=== PATIENT | male | born 1940 | race Caucasian/White ===

== ENCOUNTER → 2020-05-09 | Outpatient (CLI) | payer MEDICARE, OTHER ==
[2020-05-09 13:11] LABS: INR 1.5 (0.8-1.4); PROTHROMBIN TIME PATIENT 18.6 SEC (12.2-14.7)
== END ==
LOC: LAB FS 12:39
DX: Z01.89 Encounter for other specified special examinations (principal); Z79.01 Long term (current) use of anticoagulants; Z95.2 Presence of prosthetic heart valve
CPT/HCPCS: 36415; 85610

== ENCOUNTER 2021-05-23 22:01 | Emergency (ER) | payer MEDICARE, OTHER ==
[~2021-05-23] VITALS: Ht 175 cm; Wt 81.6 kg
--- OUTSIDE RECORDS SUMMARY | 2021-05-23 22:05 | XMS REPORT | Encounter Summary ---
Author Author [facility] Organization [facility] Address Unknown Phone Unavailable Care Team Providers Care Counselor Aid Name Role Phone Lesia Rosenthal Unavailable Unavailable Jean Castellanos MD Unavailable Homer Cabezas MD Unavailable Jose Luis Roblero MD PCP Reason for Visit * Reason Comments Anticoagulation INR 2.3 Encounter Details Care Team Description Date Type Department Adrienne Cruz RN Anticoagulation (INR 2.3) 04/26/2021 Anticoagulation Cardiology: [facility] [address], [address] [place] [address] Social History Date Tobacco Use Types Packs/Day Years Used Never Smoker Smokeless Tobacco: Never Used Comments Alcohol Use Standard Drinks/Week 1 can of beer a day- summer only Yes 7 (1 standard drink = 0.6 o z pure alcohol) Alcohol Habits Answer Date Recorded How often do you have a drink containing alcohol? No t asked How many drinks containing alcohol do you have on No t asked a typical day when you are drinking? How often do you have six or more drinks on one Not asked occasion? Comment: 1 can of beer a - summer02/09/2018 only Sex Assigned at Date Recorded Not on file documented as of this encounter Progress Notes * Adrienne Cruz RN - 04/26/2021 11:00 AM CDT 04/26/2021 11:31 AM INR 2.3 - spoke with spouse mala and confirmed warfarin gentry n. Increased dose by 5% from last week's total dose. INR recheck in 1 week. CJohnst onRN documented in this encounter Plan of Treatment Not on filedocumented as of this encounter Procedures Comments Procedure Name Priority Date/Time Associated Diag nosis HOME INR Routine 04/26/2021 documented in this encounter Results * HOME INR (04/26/2021) INR Home 2.3 OTHER OUTSIDE LAB Specimen Narrative Performed At This result has an attachment that is n ot available. Performing Organization Address City/State/ZIP Code P maddie Number OTHER OUTSIDE LAB documented in this encounter Visit Diagnoses Diagnosis Anticoagulant long-term use - Primary Long-term (current) use of anticoagulan ts History of aortic valve replacement Heart valve replaced by other means documented in this encounter Additional Health Concerns Assessment Noted Time A fall risk assessment has been completed for the pat ient 03/13/2021 10:59 AM CDT documented as of this encounter
--- OUTSIDE RECORDS SUMMARY | 2021-05-23 22:05 | XMS REPORT | Encounter Summary ---
Author Author [facility] Organization [facility] Address Unknown Phone Unavailable Care Team Providers Care Accounting Associate Name Role Phone Lesia Rosenthal Unavailable Unavailable Jean Castellanos MD Unavailable Homer Cabezas MD Unavailable Jose Luis Roblero MD PCP Reason for Visit * Reason Comments Anticoagulation INR 2.3//return 04/23 Encounter Details Care Team Description Date Type Department Lori Lundy, EUGENIO Anticoagulation (INR 2.3//return 04/23) 04/19/2021 Anticoagulation Cardiology: [facility] [address], [address] [place] [address] Social History Date Tobacco Use [...] as of this encounter Progress Notes * Lori Lundy, RN - 04/19/2021 8:40 AM CDT 04/19/2021 8:43 AM INR 2.3 - I spoke with Shara - she states that they misunders tood instructions and Osman has only been taking 5mg of warfarin daily. I asked that he increase his dose today only and recheck INR Thursday. Shara read back instructions and confirmed understanding. Lori Lundy, RN documented in this encounter Plan of Treatment Not on filedocumented as of this encounter Procedures Comments Procedure Name Priority Date/Time Associated Diag nosis HOME INR Routine 04/19/2021 documented in this encounter Results * HOME INR (04/19/2021) INR Home 2.3 OTHER OUTSIDE LAB Specimen [...]
--- OUTSIDE RECORDS SUMMARY | 2021-05-23 22:05 | XMS REPORT | Encounter Summary ---
Author Author [facility] Organization [facility] Address Unknown Phone Unavailable Care Team Providers Care Fixed Wing Aircraft Flight Mechanic Name Role Phone Lesia Rosenthal Unavailable Unavailable Jean Castellanos MD Unavailable Homer Cabezas MD Unavailable Jose Luis Roblero MD PCP Reason for Visit * Reason Comments Anticoagulation INR 1.1 Encounter Details Care Team Description Date Type Department Kizzy Koenig RN Anticoagulation (INR 1.1) 03/29/2021 Anticoagulation Cardiology: [facility] [address], [address] [place] [address] Social History Date Tobacco Use [...] occasion? Comment: 1 can of beer a day- summer02/09/2018 only Sex Assigned at Date Recorded Not on file Date Recorded COVID-19 Exposure Response 03/13/2021 9:39 AM CDT In the last month, have you been in contact with No / Unsure someone who was confirmed or suspected to have Coronavirus / COVID-19? documented as of this encounter Progress Notes * Kizzy Koenig RN - 03/29/2021 9:41 AM CDT 03/29/2021 9:42 AM -INR 1.1- pt is s/p thyroid biopsy, taking lovenox and resumed his warfarin yesterday. I spoke with the spouse Shara, instructed to take 7.5 mg warfarin daily, continue the Lovenox BID and recheck INR on 04/01- Zay documented in this encounter Plan of Treatment Not on filedocumented as of this encounter Procedures Comments Procedure Name Priority Date/Time Associated Diag nosis HOME INR Routine 03/29/2021 documented in this encounter Results * HOME INR (03/29/2021) INR Home 1.1 [facility] Specimen Performing Organization Address City/State/ZIP Code P maddie Number [facility] [address] [place] [address] documented in this encounter Visit Diagnoses Not on filedocumented in this encounter Additional Health Concerns Assessment Noted Time A fall risk assessment has been completed for the pat ient 03/13/2021 10:59 AM CDT documented as of this encounter
--- OUTSIDE RECORDS SUMMARY | 2021-05-23 22:05 | XMS REPORT | Encounter Summary ---
Author Author [facility] Organization [facility] Address Unknown Phone Unavailable Care Team Providers Care Animal Nursery Worker Name Role Phone Lesia Rosenthal Unavailable Unavailable Jean Castellanos MD Unavailable Homer Cabezas MD Unavailable Jose Luis Roblero MD PCP Reason for Visit * Reason Comments Anticoagulation INR 3.4 Encounter Details Care Team Description Date Type Department Kizzy Koenig RN Anticoagulation (INR 3.4) 04/11/2021 Anticoagulation Cardiology: [facility] [address], [address] [place] [address] Social History Date Tobacco Use [...] Progress Notes * Kizzy Koenig RN - 04/11/2021 10:44 AM CDT 04/11/2021 11:08 AM -INR 3.4-I called the spouse Shara and reviewed the INR resul t, prior the thyroid biopsy he was taking 5 mg several days a week. Warfarin dos e decreased and he will recheck in 1 week. [facility] Shara will keep us updated if this is scheduled. She has 40 Lovenox sy ringes at home in case he needs to hold warfarin and bridge with Lovenox. [place] RN documented in this encounter Plan of Treatment Not on filedocumented as of this encounter Procedures Comments Procedure Name Priority Date/Time Associated Diag nosis HOME INR Routine 04/11/2021 documented in this encounter Results * HOME INR (04/11/2021) INR Home 3.4 OTHER OUTSIDE LAB Specimen Narrative Performed At This result has an attachment that is n ot available. Performing Organization Address City/State/ZIP Code P maddie Number OTHER OUTSIDE LAB documented in this encounter Visit Diagnoses Not on filedocumented in this encounter Additional Health Concerns Assessment Noted Time A fall risk assessment has been completed for the pat ient 03/13/2021 10:59 AM CDT documented as of this encounter
--- OUTSIDE RECORDS SUMMARY | 2021-05-23 22:05 | XMS REPORT | Encounter Summary ---
Author Author [facility] Organization [facility] Address Unknown Phone Unavailable Care Team Providers Care Public Health Administrator Name Role Phone Lesia Rosenthal Unavailable Unavailable Jean Castellanos MD Unavailable Homer Cabezas MD Unavailable Jose Luis Roblero MD PCP Reason for Visit * Reason Comments Anticoagulation INR 2.1 Encounter Details Care Team Description Date Type Department Kizzy Koenig RN Anticoagulation (INR 2.1) 04/03/2021 Anticoagulation Cardiology: [facility] [place] [place] [address] Social History Date Tobacco Use Types Packs/Day [...] Progress Notes * Kizzy Koenig RN - 04/03/2021 9:00 AM CDT 04/03/2021 1:15 PM -INR 2.1- INR reviewed with Dr. Tracy in clinic and the pt c an stop taking the Lovenox injections. I called the pt and spoke with the spouse Shara and reviewed the plan to stop taking the Lovenox and continue taking the 7.5 mg of warfarin daily. Shara will recheck the INR on 04/05 or 04/08/21. Debi Burnett documented in this encounter Plan of Treatment Not on filedocumented as of this encounter Procedures Comments Procedure Name Priority Date/Time Associated Diag nosis HOME INR Routine 04/03/2021 documented in this encounter Results * HOME INR (04/03/2021) INR Home 2.1 OTHER OUTSIDE LAB Specimen Narrative Performed At [...]
--- OUTSIDE RECORDS SUMMARY | 2021-05-23 22:05 | XMS REPORT | Encounter Summary ---
Author Author [facility] Organization [facility] Address Unknown Phone Unavailable Care Team Providers Care Weigh And Charge Worker Name Role Phone Lesia oRsenthal Unavailable Unavailable Jean Castellanos MD Unavailable Homer Cabezas MD Unavailable Jose Luis Roblero MD PCP Reason for Visit * Reason Comments Anticoagulation INR 1.8 Encounter Details Care Team Description Date Type Department Kizzy Koenig RN Anticoagulation (INR 1.8) 04/23/2021 Anticoagulation Cardiology: [facility] [address], [address] [place] [address] Social History Date Tobacco Use [...] Progress Notes * Kizzy Koenig RN - 04/23/2021 10:35 AM CDT 04/23/2021 10:45 AM -INR 1.8- spoke with spouse mala and verified the warfarin dosing he has been taking, warfarin dose increased and he will recheck the INR o n 04/26/21-Zay documented in this encounter Plan of Treatment Not on filedocumented as of this encounter Procedures Comments Procedure Name Priority Date/Time Associated Diag nosis HOME INR Routine 04/23/2021 documented in this encounter Results * HOME INR (04/23/2021) INR Home 1.8 OTHER OUTSIDE LAB Specimen Narrative Performed At [...]
--- OUTSIDE RECORDS SUMMARY | 2021-05-23 22:05 | XMS REPORT | Encounter Summary ---
Author Author [facility] Organization [facility] Address Unknown Phone Unavailable Care Team Providers Care Arboreal Scientist Name Role Phone Lesia Rosenthal Unavailable Unavailable Jean Castellanos MD Unavailable Homer Cabezas MD Unavailable Jose Luis Roblero MD PCP Reason for Visit * Reason Comments Anticoagulation INR 2.9// return Encounter Details Care Team Description Date Type Department Rosemarie Dockery RN Anticoagulation (INR 2.9// return) 03/25/2021 Anticoagulation Cardiology: [facility] [address], [address] [place] [address] Social History Date Tobacco Use [...] as of this encounter Progress Notes * Rosemarie Dockery RN - 03/25/2021 11:02 AM CDT 03/25/2021: INR 2.9 from 03/23. Patient already has instructions regarding hold fo r procedure this week. Will recheck INR 03/29. EUGENIO Salazar documented in this encounter Plan of Treatment Not on filedocumented as of this encounter Procedures Comments Procedure Name Priority Date/Time Associated Diag nosis HOME INR Routine 03/23/2021 documented in this encounter Results * HOME INR (03/23/2021) INR Home 2.9 OTHER OUTSIDE LAB Specimen Narrative Performed At [...]
--- OUTSIDE RECORDS SUMMARY | 2021-05-23 22:05 | XMS REPORT | Encounter Summary ---
Author Author [facility] Organization [facility] Address Unknown Phone Unavailable Care Team Providers Care Eyeglass Frames Inspector Name Role Phone Lesia Rosenthal Unavailable Unavailable Jean Castellanos MD Unavailable Homer Cabezas MD Unavailable Jose Luis Roblero MD PCP Reason for Visit * Reason Comments Medication Refill Encounter Details Care Team Description Date Type [place] [address] [place] [address] [phone] Medication Refill 04/03/2021 Refill Cardiology: [facility] [address] [place] [address], [address] [place] [address] Social History Date Tobacco Use [...] / COVID-19? documented as of this encounter Ordered Prescriptions Start Date End Date Prescription Sig Dispensed Refills 04/04/2021 warfarin (COUMADIN) 5 mg TAKE 1 & 1/2 135 tablet 1 tablet (ONE & ONE-HALF) TABLETS BY MOUTH ONCE DAILY AND DIRECTED BY PHYSICIAN documented in this encounter Plan of Treatment Not on filedocumented as of this encounter Visit Diagnoses Not on filedocumented in this encounter Discontinued Medications Start Date End Date Medication Sig Discontinue Reason 12/10/2020 04/04/2021 warfarin (COUMADIN) 5 mg TAKE 1 & 1/2 tablet (ONE & ONE-HALF) TABLETS BY MOUTH ONCE DAILY AND DIRECTED BY PHYSICIAN documented as of this encounter Additional Health Concerns Assessment Noted Time A fall risk assessment has been completed for the pat ient 03/13/2021 10:59 AM CDT documented as of this encounter
--- OUTSIDE RECORDS SUMMARY | 2021-05-23 22:05 | XMS REPORT | Encounter Summary ---
Author Author [facility] Organization [facility] Address Unknown Phone Unavailable Care Team Providers Care Plant Manager Name Role Phone Lesia Rosenthal Unavailable Unavailable Jean Castellanos MD Unavailable Homer Cabezas MD Unavailable Jose Luis Roblero MD PCP Reason for Visit * Reason Comments Anticoagulation INR 3.6 Encounter Details Care Team Description Date Type Department Kizzy Koenig RN Anticoagulation (INR 3.6) 05/17/2021 Anticoagulation Cardiology: [facility] [address], [address] [place] [address] Social History Date Tobacco Use [...] Progress Notes * Kizzy Koenig RN - 05/17/2021 12:17 PM CDT 05/17/2021 12:19 PM -INR 3.6- I called Shara and confirmed the warfarin dosing h imer has been taking. He will decrease the dose and recheck the INR in 1 week- [facility] oaRN documented in this encounter Plan of Treatment Not on filedocumented as of this encounter Procedures Comments Procedure Name Priority Date/Time Associated Diag nosis HOME INR Routine 05/17/2021 documented in this encounter Results * HOME INR (05/17/2021) INR Home 3.6 OTHER OUTSIDE LAB Specimen Narrative Performed At [...]
--- OUTSIDE RECORDS SUMMARY | 2021-05-23 22:05 | XMS REPORT | Clinical Summary ---
Author Author [facility] Address Unknown Phone Unavailable Care Team Providers Care Bull Ladle Tender Name Role Phone Lesia Rosenthal Unavailable Unavailable Jean Castellanos MD Unavailable Homer Cabezas MD Unavailable Jose Luis Roblero MD PCP Source Comments Some departments are not documenting in the electronic medical record. If you d o not see the information that you expected, contact Release of Information in [facility] [employer] Information Management department at [phone] for further assistan ce in locating additional records.[facility] Allergies No Known Active Allergies Medications End Date Status Medication Sig Dispensed Refills Start Date Active aspirin EC 81 mg tablet Take 81 mg by 0 mouth at bedtime daily. Active omeprazole DR(+) Take 20 mg by 0 (PRILOSEC) 20 mg capsule mouth as Needed. Active cholecalciferol (VITAMIN Take 400 0 D-3) 400 unit Tab Units by mouth daily. Active finasteride (PROSCAR) 5 Take 5 mg by 0 mg tablet mouth daily. Active fish oil /omega-3 fatty Take 3 0 acids (SEA-OMEGA) capsules by 340/1000 mg capsule mouth daily. Active sildenafil citrate Take by 0 (VIAGRA PO) mouth. Active rosuvastatin (CRESTOR) 20 Take one 90 tablet 0 02/02/202 mg tabletIndications: tablet by 0 hyperlipidemia mouth daily. Indications: excessive fat in the blood Active other medication CBD 0 Supplements Active cetirizine (ZYRTEC) 10 mg Take 10 mg by 0 05/0 tablet mouth daily. 1 Active fluticasone propionate Apply 1 spray 0 03/26/2 02 (FLONASE) 50 into nose as 1 mcg/actuation nasal directed spray, suspension daily as needed. Active losartan (COZAAR) 100 mg Take one 90 tablet 3 0 tablet tablet by 1 mouth daily. Active enoxaparin (LOVENOX) 80 Inject 0.8 mL 10 each 1 mg syringe under the 1 skin every 12 hours. As provider instructed you to take. Active warfarin (COUMADIN) 5 mg TAKE 1 & 08/11 135 tablet 1 tablet (ONE & 1 ONE-HALF) TABLETS BY MOUTH ONCE DAILY AND DIRECTED BY PHYSICIAN Active Problems Problem Noted Date Leg pain 11/21/2013 Rotator cuff disorder 09/13/2012 Preoperative cardiovascular examination 08/18/2012 Left shoulder pain 08/18/2012 Elevated liver enzymes 12/15/2011 Thyroid nodule 10/23/2011 Overview: Formatting of this note might be differ ent from the original. 10/17/11- CTA chest: 2.3 cm nodule in the right lobe of the thyroid. Consult Dr Castellanos- Ultrasound and image g uided biopsy. Thoracic aortic aneurysm 10/14/2011 History of colon cancer 12/11/2010 Overview: Formatting of this note might be differ ent from the original. Was treated by Dr. Dmitriy Santana in [facility]. Patient has had chemotherapy in the past. Essential hypertension 12/11/2010 History of aortic valve replacement: [address] Maurilio b ileaflet mechanical 12/09/2010 aortic valve Overview: Formatting of this note might be differ ent from the original. 10/09/03 [facility], Aor tic valve replacement with 23-MM St. Maurilio mechanical valve, single vessel co ronary artery bypass grafting with aortic reversed saphenous vein graft to the distal right coronary artery system. Dyslipidemia 12/09/2010 GERD (gastroesophageal reflux disease) 12/09/2010 CAD (coronary artery disease) 12/09/2010 Overview: Formatting of this note might be differ ent from the original. 09/01/2003 cardiac catheterization, [facility], angioplasty and stent procedure was terminated erin use they were unable to maintain engagement enough to actually pass the wire down the right coronary artery. 03/12/2006 cardiac catheterization, [facility], angioplasty and stenting of the left anterior desce nding. 3.5 x 23 mm Cypher drug eluting stent. History of CABG 12/09/2010 Overview: Formatting of this note might be differ ent from the original. 2003 Javier Hall MD [facility] [address], [place] [address] Anticoagulant long-term use 12/09/2010 Overview: Formatting of this note might be differ ent from the original. Had previously been taking brand name c oumadin but more recently generic warfarin. Encounters Care Team Description Date Type Specialty Kizzy Koenig RN Anticoagulation (INR 3.6) 05/17/2021 Anticoagulation Cardiology Kizzy Koenig RN Anticoagulation (INR 3.6) 05/10/2021 Anticoagulation Cardiology Kizzy Koenig RN Anticoagulation (INR 3.6) 05/03/2021 Anticoagulation Cardiology Kizzy Koenig RN Test 04/29/2021 Telephone Cardiology Adrienne Cruz RN Anticoagulation (INR 2.3) 04/26/2021 Anticoagulation Cardiology Kizzy Koenig RN Anticoagulation (INR 1.8) 04/23/2021 Anticoagulation Cardiology Lori Lundy RN Anticoagulation (INR 2.3//return 04/23) 04/19/2021 Anticoagulation Cardiology Kizzy Koenig RN Anticoagulation (INR 3.4) 04/11/2021 Anticoagulation Cardiology Kizzy Koenig RN Anticoagulation (INR 2.3) 04/05/2021 Anticoagulation Cardiology Giancarlo Tracy MD Medication Refill 04/03/2021 Refill Cardiology Kizzy Koenig RN Anticoagulation (INR 2.1) 04/03/2021 Anticoagulation Cardiology Kizzy Koenig RN Anticoagulation (INR 1.5) 04/01/2021 Anticoagulation Cardiology Kizzy Koenig RN Anticoagulation (INR 1.1) 03/29/2021 Anticoagulation Cardiology Kizzy Koenig RN Medication Question About Anticoagulatio n Therapy (Lovenox bridge) 03/27/2021 Telephone Cardiology Rosemarie Dockery RN Anticoagulation (INR 2.9// return) 03/25/2021 Anticoagulation Cardiology Joan Cowan RN Medication Management ([facility] picked edge sewing machine [facility]) 03/23/2021 Telephone Cardiology Laury Polanco RN Medication Question About Anticoagulatio n Therapy (8/18/21 Thyroid nodule biopsy scheduled) 03/22/2021 Telephone Cardiology Laury Polanco RN Anticoagulation (INR 4.2) 03/22/2021 Anticoagulation Cardiology Kenyetta [place] RN Dyslipidemia (Primary Dx) 03/21/2021 Orders Only Cardiology Kizzy Koenig RN Results (CT chest) 03/18/2021 Telephone Cardiology Haydee Piper PA-C CAD (3 month follow up ); Hypertension; Dyslipidemia 03/13/2021 Office Visit Cardiology Giancarlo Tracy MD 03/13/2021 Hospital Radiology Encounter 03/13/2021 Travel Kenyetta [place] RN Records Request (recent labs from PCP) 03/12/2021 Documentation Cardiology Kizzy Koenig RN Patient Questions 03/11/2021 Telephone Cardiology Sol Magallon RN Appointment Question (CT chest & TIGRE appt ) 03/11/2021 Telephone Cardiology Kizzy Koenig RN Anticoagulation (INR 2.6) 02/27/2021 Anticoagulation Cardiology from Last 3 Months Surgical History Surgery Date Site/Laterality Comments COLECTOMY 2000 HERNIA REPAIR x 2 HX ROTATOR CUFF REPAIR HEART VALVE SURGERY 2003 Aortic Valve repla cement, Bypass, 2006- Stent SHOULDER SURGERY 08/31/2012 left shoulder Medical History Medical History Date Comments Aortic valve replaced 12/09/2010 Hyperlipidemia 12/09/2010 GERD (gastroesophageal reflux disease) 12/09/2010 CAD (coronary artery disease) 12/09/2010 Coronary bypass 12/09/2010 Anticoagulant long-term use 12/09/2010 History of colon cancer 12/11/2010 Hypertension 12/11/2010 Unspecified deficiency anemia Complication of anesthesia Arthritis Cancer (HCC) Hearing loss Seasonal allergic reaction Fracture kneecap, finger Family History Medical History Relation Name Comments Cancer Brother Cancer Mother colon cancer Colon Polyps Mother High Cholesterol Mother Hypertension Mother Stroke Mother Cancer Sister Stroke Sister Colon Polyps Sister Cancer-Colon Sister Brain Tumor Sister Relation Name Status Comments Brother Alive Brother Alive Brother after liver tx Father emphysema Maternal Aunt aortic heart valve Mother stroke (Age 84) Sister Sister Alive Sister Sister Sister Social History Date Tobacco Use Types Packs/Day Years Used Never Smoker Smokeless Tobacco: Never Used Tobacco Cessation: Counseling Given: Yes Comments Alcohol Use Standard Drinks/Week 1 can [...] Comment: 1 can of beer a day- summer 02/09/2018 only Sex Assigned at Date Recorded Not on file Last Filed Vital Signs Reading Time Taken Comments Vital Sign 140/82 03/13/2021 11:24 AM CDT Blood Pressure 68 03/13/2021 10:59 AM CDT Pulse 36.7 C (98 F) 09/17/2012 8:42 AM DIRECTOR DERMATOLOGY Temperature 16 04/19/2019 11:03 AM CDT Respiratory Rate 97% 06/22/2018 12:56 PM DIRECTOR DERMATOLOGY Oxygen Saturation - - Inhaled Oxygen Concentration 84.3 kg (185 lb 12.8 oz) 03/13/2021 10:59 AM CDT Weight 175.3 cm (5' 9") 03/13/2021 10:59 AM CDT Height 27.44 03/13/2021 10:59 AM CDT Body Mass Index Plan of Treatment Health Maintenance Due Date Last Done Comments MEDICARE ANNUAL WELLNESS 1940 VISIT DTAP/TDAP VACCINES (1 - 01/06/1958 Tdap) PHYSICAL (COMPREHENSIVE) 01/06/1958 EXAM PNEUMONIA (PPSV23) 01/06/2005 VACCINE (1 of 1 - PPSV23) INFLUENZA VACCINE 03/10/2021 05/13/2012 SHINGLES RECOMBINANT 03/19/2021 01/22/2021 VACCINE (2 of 2) Procedures Comments Procedure Name Priority Date/Time Associated Diag nosis HOME INR Routine 05/17/2021 HOME INR Routine 05/10/2021 HOME INR Routine 05/03/2021 HOME INR Routine 04/26/2021 HOME INR Routine 04/23/2021 HOME INR Routine 04/19/2021 HOME INR Routine 04/11/2021 HOME INR Routine 04/05/2021 HOME INR Routine 04/03/2021 HOME INR Routine 04/01/2021 HOME INR Routine 03/29/2021 HOME INR Routine 03/23/2021 HOME INR Routine 03/22/2021 CTA CHEST WO/W Routine 03/13/2021 Thoracic aortic aneurysm CONTRAST+POST P 10:05 AM CDT without rupture (HC C) HC CREATININE, POC 03/13/2021 9:54 AM CDT HOME INR Routine 02/27/2021 from Last 3 Months Results * HOME INR (05/17/2021) Only the most recent of 14 results within the time period is included. INR Home 3.6 OTHER OUTSIDE LAB Specimen Narrative Performed At This result has an attachment that is n ot available. Performing Organization Address City/State/ZIP Code P maddie Number OTHER OUTSIDE LAB * CTA CHEST WO/W CONTRAST+POST P (03/13/2021 10:05 AM CDT) Specimen Impressions Performed At 1. Previous CABG and aortic valve replacement, with s table ascending aortic [facility] aneurysm, measuring up to 5.1 cm. 2. Development of few clustered nodules within the left upper lobe, measuring up to 0.7 cm, which are nonspecific though likely infectious. Follow-up CT chest in 3-6 months is recommended to confirm re solution. #FOLLOW Finalized by WILLY KASPER M.D. on 2020 10:39 AM. Dictated by WILLY KASPER M.D. on 03/13/2021 10:13 AM. Narrative Performed At CTA Chest [facility] Clinical Indication: Thoracic aortic aneurysm without rupture Technique: Multiple contiguous axial CT images were obtained through the chest following the administration of IV cont rast.Noncontrast imaging was also obtained. Post processing coronal and s agittal reconstruction images were made from the axial images. Image post-pro cessing was obtained. Sagittal and coronal MIP reconstruction was performe d IV contrast: Omnipaque Comparison: 03/15/2020 Findings: Lower neck: Similar enlarged, multinodu lar thyroid. Axilla, Mediastinum and Myranda: No axilla ry, mediastinal, or hilar adenopathy. Heart and Great Vessels: Heart size wit hin normal limits without significant pericardial effusion. Coronary artery c alcification and stent. Previous median sternotomy, CABG, and aortic valve repl acement. Stable dilatation of the ascending aorta, measuring up to 5.1 cm in diameter. No thoracic aortic dissection or intramural hematoma. Airway, Lungs and Pleura: Development o f few small nodules within the anterior left upper lobe, with a dominant nodule measuring up to 0.7 cm on image 95 series 4. Resolution of previously new tiny clustered nodules within the anterior right upper lobe. Few addition al tiny pulmonary nodules are unchanged (for example in the right lower lobe on image 129 series 4). No pleural effusion. Upper Abdomen: Cholelithiasis. Probable right renal cyst. Chest Wall and Osseous Structures: Smal l fat-containing anterior abdominal wall hernia. Previous left shoulder arthropl asty. Thoracic spondylosis. Procedure Note Interface, Radiant Results - 03/13/2021 10:42 AM CDT CTA Chest Clinical Indication: Thoracic aortic aneurysm without rupture Technique: Multiple contiguous axial CT images were obtained through the chest following the administration of IV contrast.Noncontrast imaging was also obtained. Post processing coronal and sagittal reconstruction images were made from the axial images. Image post-processing was obtained. Sagittal and coronal MIP reconstruction was performed IV contrast: Omnipaque Comparison: 03/15/2020 Findings: Lower neck: Similar enlarged, multinodular thyroid. Axilla, Mediastinum and Myranda: No axillary, mediastinal, or hilar adenopathy. Heart and Great Vessels: Heart size within normal limits without significant pericardial effusion. Coronary artery calcification and stent. Previous median sternotomy, CABG, and aortic valve replacement. Stable dilatation of the ascending aorta, measuring up to 5.1 cm in diameter. No thoracic aortic dissection or intramural hematoma. Airway, Lungs and Pleura: Development of few small nodules within the anterior left upper lobe, with a dominant nodule measuring up to 0.7 cm on image 95 series 4. Resolution of previously new tiny clustered nodules within the anterior right upper lobe. Few additional tiny pulmonary nodules are unchanged (for example in the right lower lobe on image 129 series 4). No pleural effusion. Upper Abdomen: Cholelithiasis. Probable right renal cyst. Chest Wall and Osseous Structures: Small fat-containing anterior abdominal wall hernia. Previous left shoulder arthroplasty. Thoracic spondylosis. IMPRESSION 1. Previous CABG and aortic valve replac ement, with stable ascending aortic aneurysm, measuring up to 5.1 cm. 2. Development of few clustered nodules within the left upper lobe, measuring up to 0.7 cm, which are nonspecific though likely infectious. Follow-up CT chest in 3-6 months is recommended to confirm resolution. #FOLLOW Finalized by WILLY KASPER M.D. on 03/13/2021 10:39 AM. Dictated by WILLY KASPER M.D. on 03/13/2021 10:13 AM. Performing Organization Address City/State/ZIP Code P maddie Number [facility] * POC CREATININE, RAD (03/13/2021 9:54 AM CDT) Creatinine, POC 1.1 0.4 - 1.24 MG/DL [facility] Specimen Performing Organization Address City/State/ZIP Code P maddie Number [facility] [address] [place] [address] from Last 3 Months Insurance Type Payer Benefit Subscriber ID Effective Phone Address Plan / Dates Group Medicare MEDICARE MEDICARE [id number] 2004-P PART A AND resent B [phone] Advance Directives Patient Operations Specialist Explanation Type Date Recorded Advance Directive/DPOA Advance Directives 08/18/2012 2:31 PM and Living Will Advance Directives 07/27/2012 12:26 PM and Living Will Advance Directives 10/07/2011 12:00 AM and Living Will Advance Directives 12/09/2010 12:00 AM and Living Will Advance Directives 12/06/2010 12:00 AM and Living Will Date Inactivated Comments Code Status Date Activated 09/17/2012 3:23 PM Full Code 09/15/2012 6:07 PM Provider has discussed Code Status Yes w/Patient or Family? 09/02/2012 12:57 PM Full Code 08/31/2012 2:34 PM Provider has discussed Code Status Yes w/Patient or Family?
--- OUTSIDE RECORDS SUMMARY | 2021-05-23 22:05 | XMS REPORT | Encounter Summary ---
Author Author [facility] Organization [facility] Address Unknown Phone Unavailable Care Team Providers Care Textile Worker Name Role Phone Lesia Rosenthal Unavailable Unavailable Jean Castellanos MD Unavailable Homer Cabezas MD Unavailable Jose Luis Roblero MD PCP Reason for Visit * Reason Onset Date Comments Test 04/29/2021 Encounter Details Care Team Description Date Type Department Kizzy Koenig RN Test 04/29/2021 Telephone Cardiology: [facility] [address] [place] [address] Social History Date Tobacco Use [...] on file documented as of this encounter Miscellaneous Notes * Telephone Encounter - Kizzy Koenig RN - 04/29/2021 11:12 AM CDT I called the pt and spoke to the spouse Shara and reviewed that her beverly l be due for a follow up CTA Chest in June and I can coordinate scheduling t he same day as the 06/19/[address] Tracy. I called [facility] schedul ing and scheduled the CTA Chest on 06/19/21 @ 9:15 at the location. I reviewe d the appt info with Shara and she verbalized understanding. * Telephone Encounter - Kizzy Koenig RN - 04/29/2021 11:10 AM CDT ----- Message from Kizzy Koenig RN sent at 03/18/2021 2:10 PM CDT ----- Regarding: coordinate f/u CT with OV in documented in this encounter Plan of Treatment Not on filedocumented as of this encounter Visit Diagnoses Not on filedocumented in this encounter Additional Health Concerns Assessment Noted Time A fall risk assessment has been completed for the pat ient 03/13/2021 10:59 AM CDT documented as of this encounter
--- OUTSIDE RECORDS SUMMARY | 2021-05-23 22:05 | XMS REPORT | Encounter Summary ---
Author Author [facility] Organization [facility] Address Unknown Phone Unavailable Care Team Providers Care Kier Drier Name Role Phone Lesia Rosenthal Unavailable Unavailable Jean Castellanos MD Unavailable Homer Cabezas MD Unavailable Jose Luis Roblero MD PCP Reason for Visit * Reason Onset Date Comments Medication Question About 03/27/2021 Lovenox brid ge Anticoagulation Therapy Encounter Details Care Team Description Date Type Department Kizzy Koenig RN Medication Question About Anticoagulatio n Therapy (Lovenox bridge) 03/27/2021 Telephone Cardiology: [facility] [address] [place] [address], [address] [place] [address] Social History Date Tobacco Use [...] / COVID-19? documented as of this encounter Miscellaneous Notes * Telephone Encounter - Kizzy Koenig RN - 03/29/2021 4:32 PM CDT 03/29/2021 4:32 PM - I spoke with the spouse and reviewed that they should receiv e the Lovenox syringes tomorrow. We reviewed to take 7.5 mg warfarin daily. love nox twice daily and INR on Thursday. * Telephone Encounter - Kizzy Koenig RN - 03/29/2021 12:40 PM CDT 03/29/2021 12:40 PM - Message received on the nurse line from Elizabeth BECKER with the [facility]. [facility]. She attempt ed calling the pt but did not reach them. I tried calling the spouse Shara and the voicemail was full. * Telephone Encounter - Kizzy Koenig RN - 03/29/2021 10:00 AM CDT 03/29/2021 10:01 AM I called Elizabeth BECKER with the [facility] clinic to follow up. She states she did rec eive the Lovnoex prescription and documentation and is awaiting Dr. Malloy to e nter the Lovenox prescription in the [place] system. I reviewed that the pts INR toda y is 1.1 and he will need to continue taking the Loveno twice daily thru the wee kend until we get his INR back in range. I reviewed that the pt [place] [address] from the [facility]. I reviewed that he has one lovenox syringe remaining for this ruth ann bridget and he will need lovenox for the weekend and does not want to drive back to the [facility]. Elizabeth states that once Dr. De La Garza enters the order she will follow up with the pharmacy and arrange overnight or area mechanic service to have the lovenox delivered to the pts home. She will f/u with the pt once this has been arranged. I called the pts spouse Shara and reviewed the plan, refer to the anticoagulat ion flowsheet. * Telephone Encounter - Kizzy Koenig RN - 03/27/2021 4:19 PM CDT Pts Shara called. Her had the thyroid biopsy today and is doing we ll. The procedure physician gave them approval to resume the lovenox bridge nicolle ght. He will resume the warfarin tomorrow and check an INR Thursday. Shara states they will be out of Lovenox syringes on Thursday. I reviewed that I will follow up with the [facility] clinic regarding the Lovenox refill. I had faxed the lovenox presc ription and telephone notes yesterday. I attempted calling Elizabeth Henderson RN with [facility] [place] ext [phone]. I left a detailed message and aske d for a return call. documented in this encounter Plan of Treatment Not on filedocumented as of this encounter Visit Diagnoses Not on filedocumented in this encounter Additional Health Concerns Assessment Noted Time A fall risk assessment has been completed for the pat ient 03/13/2021 10:59 AM CDT documented as of this encounter
--- OUTSIDE RECORDS SUMMARY | 2021-05-23 22:05 | XMS REPORT | Encounter Summary ---
Author Author [facility] Organization [facility] Address Unknown Phone Unavailable Care Team Providers Care Tail Dogger Name Role Phone Lesia Rosenthal Unavailable Unavailable Jean Castellanos MD Unavailable Homer Cabezas MD Unavailable Jose Luis Roblero MD PCP Reason for Visit * Reason Comments Anticoagulation INR 1.5 Encounter Details Care Team Description Date Type Department Kizzy Koenig RN Anticoagulation (INR 1.5) 04/01/2021 Anticoagulation Cardiology: [facility] [address], [address] [place] [address] Social History Date Tobacco Use [...] Progress Notes * Kizzy Koenig RN - 04/01/2021 10:26 AM CDT 04/01/2021 11:10 AM -INR 1.5- spoke to the spouse, warfarin dose increased, he wi ll continue the lovenox BID and recheck the INR on 04/03/21. He is not having ble eding at the biopsy site. Zay documented in this encounter Plan of Treatment Not on filedocumented as of this encounter Procedures Comments Procedure Name Priority Date/Time Associated Diag nosis HOME INR Routine 04/01/2021 documented in this encounter Results * HOME INR (04/01/2021) INR Home 1.5 OTHER OUTSIDE LAB Specimen Performing Organization Address City/State/ZIP Code P maddie Number OTHER OUTSIDE LAB documented in this encounter Visit Diagnoses Not on filedocumented in this encounter Additional Health Concerns Assessment Noted Time A fall risk assessment has been completed for the pat ient 03/13/2021 10:59 AM CDT documented as of this encounter
--- OUTSIDE RECORDS SUMMARY | 2021-05-23 22:05 | XMS REPORT | Encounter Summary ---
Author Author [facility] Organization [facility] Address Unknown Phone Unavailable Care Team Providers Care Developer Relations Manager Name Role Phone Lesia Rosenthal Unavailable Unavailable Jean Castellanos MD Unavailable Homer Cabezas MD Unavailable Jose Luis Roblero MD PCP Reason for Visit * Reason Comments Anticoagulation INR 2.3 Encounter Details Care Team Description Date Type Department Kizzy Koenig RN Anticoagulation (INR 2.3) 04/05/2021 Anticoagulation Cardiology: [facility] [address], [address] [place] [address] Social History Date Tobacco Use [...] Progress Notes * Kizzy Koenig RN - 04/05/2021 10:30 AM CDT 04/05/2021 10:32 AM -INR 2.3- I called the spouse Shara and reviewed to continue to have her take 7.5 mg daily and recheck the INR on 04/08/31. Zay documented in this encounter Plan of Treatment Not on filedocumented as of this encounter Procedures Comments Procedure Name Priority Date/Time Associated Diag nosis HOME INR Routine 04/05/2021 documented in this encounter Results * HOME INR (04/05/2021) INR Home 2.3 OTHER OUTSIDE LAB Specimen Performing Organization Address City/State/ZIP Code P maddie Number OTHER OUTSIDE LAB documented in this encounter Visit Diagnoses Not on filedocumented in this encounter Additional Health Concerns Assessment Noted Time A fall risk assessment has been completed for the pat ient 03/13/2021 10:59 AM CDT documented as of this encounter
--- OUTSIDE RECORDS SUMMARY | 2021-05-23 22:05 | XMS REPORT | Encounter Summary ---
Author Author [facility] Organization [facility] Address Unknown Phone Unavailable Care Team Providers Care Harmonic Analyst Name Role Phone Lesia Rosenthal Unavailable Unavailable Jean Castellanos MD Unavailable Homer Cabezas MD Unavailable Jose Luis Roblero MD PCP Reason for Visit * Reason Comments Anticoagulation INR 3.6 Encounter Details Care Team Description Date Type Department Kizzy Koenig RN Anticoagulation (INR 3.6) 05/03/2021 Anticoagulation Cardiology: [facility] [address] [place], [address] [place] [address] Social History Date Tobacco Use [...] Progress Notes * Kizzy Koenig RN - 05/03/2021 4:00 PM CDT 05/03/2021 4:04 PM -INR 3.6- I called the spouse Shara, pt is not having bleedin g issues. Verified warfarin dosing, dose decreased and he will recheck the INR i n 1 week-Zay documented in this encounter Plan of Treatment Not on filedocumented as of this encounter Procedures Comments Procedure Name Priority Date/Time Associated Diag nosis HOME INR Routine 05/03/2021 documented in this encounter Results * HOME INR (05/03/2021) INR Home 3.6 OTHER OUTSIDE LAB Specimen [...]
--- NOTE | 2021-05-23 22:24 | ED Lower Extremity ---
General Stated Complaint: RT LEG PAIN Source: patient, spouse History of Present Illness Date Seen by Provider: May 23, 2021 Time Seen by Provider: 22:06 Initial Comments 81 yo male presenting with complaint of pain to right lateral knee. He was crouched down for extended period of time and was digging while working on a double end sewer. He denied any direct trauma or injury to his knee or leg. He was having a little pain but then went and played 3-4 games of Pickle Ball. He had increasing pain as he did this. He drove himself home and walked in to the house around 1900. He iced the area of pain and rested. after about 2 hours of doing this he had increased pain when he tried to get up and was unable to bear weight due to pain. He has an artificial valve and takes Warfarin for that. He was worried he has a blood clot so he came to the ED. Last week when PT/INR checked it was 3.6 so they decreased his Warfarin dose. He is due to check his PT/INR tomorrow and he checks it at home. Onset: this afternoon Severity: severe (when he tries to bear weight otherwise he state it is not really bothering him) Pain/Injury Location: right knee (lateral aspect) Method of Injury: other (crouching and working on digging a hole for clearing a double end sewer. Then played several games of Pickle Ball.) Modifying Factors: Improves With Other (standing/bearing weight causes pain, palpation causes pain) Allergies and Home Medications Allergies Coded Allergies: No Known Drug Allergies (Unverified , 05/23/21) Patient Home Medication List Home Medication List Reviewed: Yes Review of Systems Constitutional: no symptoms reported EENTM: no symptoms reported Respiratory: no symptoms reported Cardiovascular: no symptoms reported Gastrointestinal: no symptoms reported Genitourinary: no symptoms reported Musculoskeletal: see HPI Skin: No change in color Psychiatric/Neurological: Denies Numbness, Denies Paresthesia Past Orglscy-Wrtxbv-Efyyac Hx Past Medical History Surgeries: Yes Orthopedic, Valve Replacement Respiratory: No Cardiac: Yes High Cholesterol, Hypertension, Valvular Heart Disease Neurological: No Genitourinary: Yes Benign Prostatic Hyperpl Gastrointestinal: No Musculoskeletal: No Endocrine: No HEENT: No Cancer: Yes Colon Psychosocial: No Physical Exam Vital Signs Vital Signs - First Documented 05/23/21 22:08 Temp 36.9 Pulse 67 Resp 20 B/P (MAP) 143/103 (116) Pulse Ox 97 O2 Delivery Room Air Capillary Refill : Height, Weight, BMI Height: '" Weight: lbs. oz. kg; BMI Method: General Appearance: WD/WN, no apparent distress Cardiovascular: normal peripheral pulses Knees: right knee pain, right knee soft tissue tenderness, right knee other (pain with palpation of lateral collateral ligament and down side of knee/leg. No erythema/ecchymosis. ) Neurologic/Tendon: normal sensation, normal motor functions, normal tendon functions Neurologic/Psychiatric: no motor/sensory deficits, alert, oriented x 3 Skin: normal color, warm/dry; No ecchymosis Progress/Results/Core Measures Results/Orders Lab Results Laboratory Tests Test 05/23/21 22:20 Range/Units Prothrombin Time 24.6 H 12.2-14.7 SEC INR Comment 2.2 H 0.8-1.4 Activated Partial Thromboplast Time 40 H 24-35 SEC D-Dimer 0.26 0.00-0.49 UG/ML My Orders Orders - SIMONE HENNING MD Protime With Inr (05/23/21 22:16) Partial Thromboplastin Time (05/23/21 22:16) Fibrin Degradation Products (05/23/21 22:16) Knee 3 View Right (05/23/21 22:16) Knee Immobilizer (05/23/21 23:03) Crutches (05/23/21 23:03) Vital Signs/I&O 05/23/21 22:08 Temp 36.9 Pulse 67 Resp 20 B/P (MAP) 143/103 (116) Pulse Ox 97 O2 Delivery Room Air Progress Progress Note #1: Progress Note Pt voiced that he was worried he had a blood clot since he was having severe pain this evening. He took Naproxen at home and iced the area but was still having severe pain when he tries to bear weight. Advised that we could do screening test for blood clot and see what his INR is tonight. Xray to check for acute bony abnormality. Pt refused pain medicine while waiting on imaging as he stated it was not really bothering him just resting in the bed, it was when he goes to bear weight that it hurts. Progress Note #2: Progress Note no acute fracture or bony abnormality on xrays. Degenerative changes but no significant joint effusion Progress Note #3: Time: 23:03 Progress Note INR is 2.2. D dimer is not elevated to indicate a blood clot. Will treat symptomatically with crutches and knee immobilizer. Can order outpatient ultrasound for tomorrow but this is more consistent with ligament and musculoskeletal pain/injury than DVT. May need MRI or additional imaging if not improving with immobilization and rest. Crutches for WBAT Diagnostic Imaging Diagonstic Imaging: Xray Plain Films/CT/US/NM/MRI: knee Comments NAME: ZARI MOYA [facility] REC#: [id number] PT STATUS: REG ER : 1940 PHYSICIAN: SIMONE HENNING MD ADMIT DATE: 05/23/21/ER FS Signed Date of Exam:05/23/21 KNEE 3 VIEW RIGHT Indication: Right knee pain AP, oblique and lateral views of the right knee are obtained. There is mild diffuse narrowing of knee joint compartments. This is most pronounced in the medial aspect with mild tricompartmental marginal spurring. No acute fractures identified. No significant joint effusion is identified. IMPRESSION: Mild diffuse osteoarthritis without acute osseous abnormality detected. Scratch it Dictated by: Dictated on workstation # [id number] Dict: 05/23/212232 Trans: 05/23/212233 [id number] Interpreted by: KATIE MOORE MD Electronically signed by: KATIE MOORE MD 05/23/212233 Reviewed: Reviewed by Me Departure Impression Primary Impression: Lateral joint line tenderness of right knee Additional Impression: Pain in lateral portion of right knee Disposition: 01 HOME, SELF-CARE Condition: Stable Departure-Patient Inst. Decision time for Depature: 23:17 Referrals: CATIE ROBLERO MD (PCP/Family) Primary Care Physician Patient Instructions: How to Use Crutches, Knee Brace ED, Knee Pain ED Add. Discharge Instructions: Wear knee immobilizer brace to let your knee rest and help relieve stress on knee when walking. Crutches for weight bearing as tolerated. Your INR was 2.2 tonight for us in the ED. Check with your provider about how to adjust your dosing on Warfarin. If continued problems/pain then see Dr. Roblero or Nurse Practitioner Justin Bone for Orthopedics and may need an MRI or other imaging of the knee. If you decide to have ultrasound done tomorrow you could call [phone] between 7 and 730 am. They will help arrange your ultrasound. SMIONE HENNING MD May 23, 2021 22:24
--- NOTE | 2021-05-23 22:36 | Diagnostic Imaging Report ---
Indication: Right knee pain AP, oblique and lateral views of the right knee are obtained. There is mild diffuse narrowing of knee joint compartments. This is most pronounced in the medial aspect with mild tricompartmental marginal spurring. No acute fractures identified. No significant joint effusion is identified. IMPRESSION: Mild diffuse osteoarthritis without acute osseous abnormality detected. Scratch it Dictated by: Dictated on workstation # [id number]
[2021-05-23 22:51] LABS: PROTHROMBIN TIME PATIENT 24.6 SEC (12.2-14.7)
[2021-05-23 22:52] LABS: FIBRIN DEGRADATION PRODUCTS 0.26 UG/ML (0.00-0.49); INR 2.2 (0.8-1.4)
[2021-05-23 23:30] VITALS: BP 143/103
== END 2021-05-23 23:30 | disposition home or self-care (01) ==
LOC: EDUNIT# 22:01 → ER FS 22:02
DX: M25.561 Pain in right knee (principal); I10 Essential (primary) hypertension; Z79.01 Long term (current) use of anticoagulants
CPT/HCPCS: 36415; 73562; 85379; 85610; 85730

== ENCOUNTER 2022-11-06 08:44 | Emergency (ER) | payer MEDICARE, OTHER ==
[~2022-11-06] VITALS: Ht 175 cm; Wt 77.0 kg
[2022-11-06] MEDS ORDERED: OXYMETAZOLINE (AFRIN) 0.05% NA 30 ML BTL STA (08:50)
[2022-11-06] MEDS ORDERED: OXYMETAZOLINE (AFRIN) 0.05% NA 30 ML BTL ONE (08:51)
--- NOTE | 2022-11-06 08:56 | ED EENT ---
History of Present Illness General Chief Complaint: Nasal Problems Stated Complaint: EPISTAXIS Source: patient Exam Limitations: no limitations History of Present Illness Date Seen by Provider: Nov 06, 2022 Time Seen by Provider: 08:46 Initial Comments 82yoM with PMH of valve replacement on Warfarin coming in due to a nosebleed. Started bleeding yesterday, was relatively rapid, stopped on its own. Started again at 6 AM this morning, has been less rapid than yesterday. He has not missed any doses of his warfarin. His INR is typically within range therapeutically. His states he does blow his nose a lot in the morning and messes with his nose quite a bit, so there is an aspect that this could be traumatic in nature. Denies any falls or hitting his face at all. Is otherwise denying any other acute complaints including chest pain, shortness of breath, abdominal pain, nausea, vomiting, diarrhea, fever, chills, weakness, numbness, or any other concerns. Allergies and Home Medications Allergies Coded Allergies: No Known Drug Allergies (Unverified , 05/23/21) Patient Home Medication List Home Medication List Reviewed: Yes Cephalexin (Cephalexin) 500 Mg Tablet, 500 MG PO QID Prescribed by: MASOUD WESTBROOK on 11/06/22 0944 Review of Systems Review of Systems Constitutional: No fever Eyes: No Symptoms Reported Ears: No Symptoms Reported Nose: see HPI Mouth: no symptoms reported Throat: no symptoms reported Respiratory: no symptoms reported Cardiovascular: no symptoms reported Gastrointestinal: no symptoms reported Musculoskeletal: no symptoms reported Past Gzplftb-Qpbjrm-Cwrmuv Hx Patient Social History Substance use?: No Immunizations Up To Date First/Initial COVID19 Vaccinat: SEP 2020 Second COVID19 Vaccination [place]: OCTOBER 2020 Past Medical History Surgeries: Yes Orthopedic, Valve Replacement Respiratory: No Cardiac: Yes High Cholesterol, Hypertension, Valvular Heart Disease Neurological: No Genitourinary: Yes Benign Prostatic Hyperpl Gastrointestinal: No Musculoskeletal: No Endocrine: No HEENT: No Cancer: Yes Colon Psychosocial: No Physical Exam Vital Signs Vital Signs - First Documented 11/06/22 09:00 Temp 36.0 Pulse 71 Resp 16 B/P (MAP) 157/84 (108) Pulse Ox 94 O2 Delivery Room Air Height, Weight, BMI Height: '" Weight: lbs. oz. kg; 26.00 BMI Method: General Appearance: WD/WN, no apparent distress Eyes: bilateral eye normal inspection Ears: bilateral ear auricle normal Nose: active bleeding (From left nare, appears anterior) Mouth/Throat: normal mouth inspection, pharynx normal Neck: non-tender, full range of motion, supple, normal inspection Cardiovascular: regular rate, rhythm, no edema Respiratory: chest non-tender, lungs clear, normal breath sounds, no respiratory distress, no accessory muscle use Gastrointestinal: normal bowel sounds, non tender, soft; No distended, No guarding Neurologic/Psychiatric: no motor/sensory deficits, alert, normal mood/affect Skin: normal color, warm/dry Procedures/Interventions Anterior nasal packing with rapid Rhino 5-1/2 cm used after placing it in sterile water first. Patient tolerated procedure well. There is still some minimal bleeding afterwards Progress/Results/Core Measures Results/Orders Lab Results Laboratory Tests Test 11/06/22 08:55 Range/Units White Blood Count 8.2 4.3-11.0 10^3/uL Red Blood Count 4.38 4.30-5.52 10^6/uL Hemoglobin 13.6 13.3-17.7 g/dL Hematocrit 42 40-54 % Mean Corpuscular Volume 95 80-99 fL Mean Corpuscular Hemoglobin 31 25-34 pg Mean Corpuscular Hemoglobin Concent 33 32-36 g/dL Red Cell Distribution Width 14.0 10.0-14.5 % Platelet Count 180 130-400 10^3/uL Mean Platelet Volume 10.2 9.0-12.2 fL Immature Granulocyte % (Auto) 0 % Neutrophils (%) (Auto) 56 42-75 % Lymphocytes (%) (Auto) 31 12-44 % Monocytes (%) (Auto) 10 0-12 % Eosinophils (%) (Auto) 2 0-10 % Basophils (%) (Auto) 1 0-10 % Neutrophils # (Auto) 4.6 1.8-7.8 10^3/uL Lymphocytes # (Auto) 2.5 1.0-4.0 10^3/uL Monocytes # (Auto) 0.8 0.0-1.0 10^3/uL Eosinophils # (Auto) 0.2 0.0-0.3 10^3/uL Basophils # (Auto) 0.1 0.0-0.1 10^3/uL Immature Granulocyte # (Auto) 0.0 0.0-0.1 10^3/uL Prothrombin Time 27.0 H 12.2-14.7 SEC INR Comment 2.4 H 0.8-1.4 Activated Partial Thromboplast Time 39 H 24-35 SEC Sodium Level 141 135-145 MMOL/L Potassium Level 4.5 3.6-5.0 MMOL/L Chloride Level 106 98-107 MMOL/L Carbon Dioxide Level 26 21-32 MMOL/L Anion Gap 9 5-14 MMOL/L Blood Urea Nitrogen 25 H 7-18 MG/DL Creatinine 1.17 0.60-1.30 MG/DL Estimat Glomerular Filtration Rate 62 BUN/Creatinine Ratio 21 Glucose Level 95 70-105 MG/DL Calcium Level 9.4 8.5-10.1 MG/DL My Orders Orders - MASOUD WESTBROOK MD Oxymetazoline 0.05% Nasal [place] (Afrin 0. (11/06/22 08:50) Tranexamic Acid Injection (Cyklokapron I (11/06/22 09:00) Basic Metabolic Panel (11/06/22 08:50) Cbc With Automated Diff (11/06/22 08:50) Protime With Inr (11/06/22 08:50) Partial Thromboplastin Time (11/06/22 08:50) Oxymetazoline 0.05% Nasal [place] (Afrin 0. (11/06/22 08:51) Medications Given in ED Current Medications Medications Dose Ordered Sig/Ryann Route Start Time Stop Time Status Last Admin Dose Admin Tranexamic Acid ONCE ONCE NA 11/06/22 09:00 11/06/22 09:01 DC 11/06/22 08:59 500 MG Vital Signs/I&O 11/06/22 09:00 Temp 36.0 Pulse 71 Resp 16 B/P (MAP) 157/84 (108) Pulse Ox 94 O2 Delivery Room Air Progress Progress Note : Progress Note 82-year-old male with above history coming in due to epistaxis. ABCs were intact and vitals were stable on presentation. It was very minimal bleeding anteriorly on my exam. He blew his nose and Afrin was used followed by pressure for 15 minutes. This was repeated 1 more time with initially resolution of his nosebleed, but started again 10 minutes later. Sprayed nasal TXA followed by pressure with continued bleeding so then placed a 5.5cm Rapid Rhino. Monitored the patient for over 40 minutes after this. Continued to have persistent but slower bleeding out of his left nare. I then contacted Daniela Ballesteros APRN, franchise consultant for Dr. Mortensen. She will see the patient in her clinic down the road from the ER. Given that the bleeding is much slower than when the patient came here, I do think this would be appropriate compared to an ER transfer to [place] at this time via EMS. Patient's labs are significant for an INR of 2.4 which is just under his goal of 2.5, normal hemoglobin, normal platelets. Patient was discharged in stable condition with strict return precautions and should go straight to the ENT clinic with his spouse driving. Departure Impression Primary Impression: Epistaxis Additional Impression: Anticoagulated Disposition: 01 HOME, SELF-CARE Condition: Stable Departure-Patient Inst. Decision time for Depature: 10:35 Referrals: CATIE GÓMEZ MD (PCP) Primary Care Physician Patient Instructions: Nosebleeds (DC) Add. Discharge Instructions: Please go directly to Dr. Mortensne's clinic in [place] to see his nurse practitioner, Daniela Ballesteros. Their number is [phone] and the address is [address] [place] [address] here in [place]. Antibiotics were sent to [facility] in case packing ends up staying in. Scripts Cephalexin (Cephalexin) 500 Mg Tablet 500 MG PO QID for 7 Days, #28 TAB Prov: MASOUD WESTBROOK MD 11/06/22 MASOUD WESTBROOK MD Nov 06, 2022 08:56
[2022-11-06] MEDS ORDERED: TRANEXAMIC ACID 100 MG/ML 10 ML INJECTION ONE (09:00)
[2022-11-06 09:04] LABS: BASOPHILS # (AUTO) 0.1 10^3/uL (0.0-0.1); BASOPHILS % (AUTO) 1 % (0-10); EOSINOPHILS # (AUTO) 0.2 10^3/uL (0.0-0.3); EOSINOPHILS % (AUTO) 2 % (0-10); HEMATOCRIT 42 % (40-54); HEMOGLOBIN 13.6 g/dL (13.3-17.7); LYMPHOCYTES # (AUTO) 2.5 10^3/uL (1.0-4.0); LYMPHOCYTES % (AUTO) 31 % (12-44); MEAN CORPUSCULAR HEMOGLOBIN 31 pg (25-34); MEAN CORPUSCULAR HGB CONC 33 g/dL (32-36); MEAN CORPUSCULAR VOLUME 95 fL (80-99); MEAN PLATELET VOLUME 10.2 fL (9.0-12.2); MONOCYTES # (AUTO) 0.8 10^3/uL (0.0-1.0); MONOCYTES % (AUTO) 10 % (0-12); NEUTROPHILS # (AUTO) 4.6 10^3/uL (1.8-7.8); NEUTROPHILS % (AUTO) 56 % (42-75); PLATELET COUNT 180 10^3/uL (130-400); WHITE BLOOD COUNT 8.2 10^3/uL (4.3-11.0)
[2022-11-06 09:20] LABS: INR 2.4 (0.8-1.4)
[2022-11-06 09:26] LABS: POTASSIUM 4.5 MMOL/L (3.6-5.0)
[2022-11-06 09:27] LABS: CALCIUM 9.4 MG/DL (8.5-10.1); CREATININE SERUM 1.17 MG/DL (0.60-1.30)
[2022-11-06] MEDS ORDERED: CEPH500T PO (09:44)
[2022-11-06 10:47] VITALS: BP 142/76
== END 2022-11-06 10:48 | disposition home or self-care (01) ==
LOC: EDUNIT# 08:44 → ER FS 08:46
DX: R04.0 Epistaxis (principal); Z79.01 Long term (current) use of anticoagulants
CPT/HCPCS: 30903; 36415; 80048; 85025; 85610; 85730

== ENCOUNTER 2022-12-10 12:37 | Emergency (ER) | payer OTHER ==
[~2022-12-10 12:37] MED LIST: CEPH500T PO
[2022-12-10] MEDS ORDERED: KETOROLAC 15 MG/ML VIAL IVP STA (12:51)
[2022-12-10] MEDS ORDERED: ONDANSETRON 4 MG/2 ML (SDV) Z0FRAN IVP STA (12:51)
[2022-12-10] MEDS ORDERED: NS IV 1000 ML 1,000 ML IV STA (12:51)
--- NOTE | 2022-12-10 13:02 | ED Abdominal Pain ---
General Chief Complaint: Abdominal/GI Problems Stated Complaint: ABD SWELLING; NAUSEA Nursing Triage Note: PT REPORTS EPIGASTRIC/ABDOMINAL PAIN THAT STARTED THIS AM AT ABOUT 0800. HE HAS SOME NAUSEA WITH IT WELL. PT DENIES TRYING IN OTC MEDS FOR THE PAIN OR NAUSEA. Source of Information: Patient, Spouse History of Present Illness Date Seen by Provider: December 10, 2022 Time Seen by Provider: 12:40 Initial Comments 82 yo male presenting with complaint of diffuse abdominal pain since 0800 today. He drank some coffee this am but has not eaten or drank anything else since then. 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 He has not tried anything for his symptoms. He is vague about the pain and when asked if he could be more specific and say if it is stabbing, cramping, aching, pressure, fullness, sharp type of pain he seemed frustrated when he answered "I don't know, its just a pain". He denies any fever, chills, pain with urination, blood in his urine, blood in his stools, diarrhea, constipation. He states he has not had a bowel movement today but he had one yesterday. He has not had pain like this previously. He feels pain is better as he is laying down on the bed. He rates his pain currently at a 0-1 out of 10 and at its worst he states that it was around a 3 out of 10. He does have increased pain with palpation on his abdomen. On exam he seemed to be a little more tender to the left lower quadrant based on his guarding however he reports that he has pain all over his abdomen. Timing/Duration: 4-6 Hours Severity/Quality: Mild, Other ("just a pain" when asked to describe the type of pain in his abdomen) Location: Generalized Abdomen Radiation: No Radiation Activities at Onset: Rest Modifying Factors: Improves With Lying down; Worsens With Movement Associated Symptoms: No Back Pain, No Chest Pain, No Diaphoresis, No Feve r/Chills, No Fatigue, No Headache, No Heartburn; Nausea/Vomiting (x1); No Rash, No Shortness of Air, No Syncope, No Weakness Allergies and Home Medications Allergies Coded Allergies: No Known Drug Allergies (Unverified , 05/23/21) Patient Home Medication List Home Medication List Reviewed: Yes Cephalexin (Cephalexin) 500 Mg Tablet, 500 MG PO QID Prescribed by: MASOUD WESTBROOK on 11/06/22 0944 Ondansetron (Ondansetron Odt) 4 Mg Tab.rapdis, 4 MG PO Q6H PRN for NAUSEA/VOMITING Prescribed by: SIMONE HENNING on 12/10/22 1422 Review of Systems Review of Systems Constitutional: No chills, No fever EENTM: No Symptoms Reported Respiratory: No Symptoms Reported Cardiovascular: No Symptoms Reported Gastrointestinal: See HPI Genitourinary: No Symptoms Reported Musculoskeletal: no symptoms reported Skin: no symptoms reported Psychiatric/Neurological: No Symptoms Reported Past Tmjdkol-Rbwmxz-Suinox Hx Patient Social History Tobacco Use?: No Use of E-Cig and/or Vaping dev: No Substance use?: No Alcohol Use?: Yes Alcohol type: Beer Alcohol Frequency: Couple times a week Pt feels they are or have been: No Immunizations Up To Date First/Initial COVID19 Vaccinat: SEP 2020 Second COVID19 Vaccination [place]: OCTOBER 2020 Third COVID19 Vaccination Date: SEP 2020 Past Medical History Surgery/Hospitalization HX: COLON RESECTION CABG WITH VALVE REPLACEMENT AORTIC ANEURYSM REPAIR INGUINAL HERNIA REPAIR Surgeries: Yes Orthopedic, Valve Replacement Respiratory: No Cardiac: Yes High Cholesterol, Hypertension, Valvular Heart Disease Neurological: No Genitourinary: Yes Benign Prostatic Hyperpl Gastrointestinal: No Musculoskeletal: No Endocrine: No HEENT: No Cancer: Yes Colon Psychosocial: No Physical Exam Vital Signs Vital Signs - First Documented 12/10/22 12:41 Temp 36.5 Pulse 74 Resp 16 B/P (MAP) 180/107 (131) Pulse Ox 95 O2 Delivery Room Air Capillary Refill : Less Than 3 Seconds Height/Weight/BMI Height: '" Weight: lbs. oz. kg; 25.00 BMI Method: General Appearance: WD/WN, no apparent distress Respiratory: chest non-tender, lungs clear, normal breath sounds, no respiratory distress, no accessory muscle use Cardiovascular: normal peripheral pulses, regular rate, rhythm Gastrointestinal: normal bowel sounds, soft, no pulsatile mass, guarding, tenderness (Diffuse but seems worse in LLQ with guarding on exam) Rectal: deferred Extremities: normal range of motion, non-tender, normal capillary refill Neurologic/Psychiatric: alert, oriented x 3 Skin: normal color, warm/dry Images 1 - diffuse abdominal pain worse with palpation and seems to be worse in LLQ. No rebound Focused Exam Lactate Level 12/10/22 12:52: Lactic Acid Level 1.53 Lactic Acid Level Laboratory Tests Test 12/10/22 12:52 Lactic Acid Level 1.53 MMOL/L (0.50-2.00) Progress/Results/Core Measures Results/Orders Lab Results Laboratory Tests Test 12/10/22 12:41 12/10/22 12:52 Range/Units Urine Color YELLOW Urine Clarity CLEAR Urine pH 7.5 5-9 Urine Specific Martell 1.020 1.016-1.022 Urine Protein TRACE H NEGATIVE Urine Glucose (UA) NEGATIVE NEGATIVE Urine Ketones NEGATIVE NEGATIVE Urine Nitrite NEGATIVE NEGATIVE Urine Bilirubin NEGATIVE NEGATIVE Urine Urobilinogen 0.2 < = 1.0 MG/DL Urine Leukocyte Esterase NEGATIVE NEGATIVE Urine RBC (Auto) NEGATIVE NEGATIVE Urine RBC NONE /HPF Urine WBC 0-2 /HPF Urine Squamous Epithelial Cells RARE /HPF Urine Crystals NONE /LPF Urine Bacteria NEGATIVE /HPF Urine Casts NONE /LPF Urine Mucus NEGATIVE /LPF Urine Culture Indicated NO White Blood Count 14.3 H 4.3-11.0 10^3/uL Red Blood Count 4.99 4.30-5.52 10^6/uL Hemoglobin 15.1 13.3-17.7 g/dL Hematocrit 46 40-54 % Mean Corpuscular Volume 92 80-99 fL Mean Corpuscular Hemoglobin 30 25-34 pg Mean Corpuscular Hemoglobin Concent 33 32-36 g/dL Red Cell Distribution Width 14.5 10.0-14.5 % Platelet Count 228 130-400 10^3/uL Mean Platelet Volume 10.1 9.0-12.2 fL Immature Granulocyte % (Auto) 0 % Neutrophils (%) (Auto) 66 42-75 % Lymphocytes (%) (Auto) 21 12-44 % Monocytes (%) (Auto) 7 0-12 % Eosinophils (%) (Auto) 5 0-10 % Basophils (%) (Auto) 0 0-10 % Neutrophils # (Auto) 9.5 H 1.8-7.8 X 10^3 Lymphocytes # (Auto) 3.0 1.0-4.0 X 10^3 Monocytes # (Auto) 1.1 H 0.0-1.0 X 10^3 Eosinophils # (Auto) 0.7 H 0.0-0.3 10^3/uL Basophils # (Auto) 0.1 0.0-0.1 10^3/uL Immature Granulocyte # (Auto) 0.1 0.0-0.1 10^3/uL Neutrophils % (Manual) 72 % Lymphocytes % (Manual) 16 % Monocytes % (Manual) 8 % Eosinophils % (Manual) 2 % Basophils % (Manual) 0 % Band Neutrophils 2 % Sodium Level 141 135-145 MMOL/L Potassium Level 4.6 3.6-5.0 MMOL/L Chloride Level 104 98-107 MMOL/L Carbon Dioxide Level 25 21-32 MMOL/L Anion Gap 12 5-14 MMOL/L Blood Urea Nitrogen 23 H 7-18 MG/DL Creatinine 1.25 0.60-1.30 MG/DL Estimat Glomerular Filtration Rate 57 BUN/Creatinine Ratio 18 Glucose Level 117 H 70-105 MG/DL Lactic Acid Level 1.53 0.50-2.00 MMOL/L Calcium Level 10.1 8.5-10.1 MG/DL Corrected Calcium 8.5-10.1 MG/DL Total Bilirubin 0.9 0.1-1.0 MG/DL Aspartate Amino Transf (AST/SGOT) 45 H 5-34 U/L Alanine Aminotransferase (ALT/SGPT) 38 0-55 U/L Alkaline Phosphatase 90 40-136 U/L Total Protein 8.1 6.4-8.2 GM/DL Albumin 4.6 H 3.2-4.5 GM/DL Lipase 30 8-78 U/L My Orders Orders - SIMONE HENNING MD Comprehensive Metabolic Panel (12/10/22 12:42) Lipase (12/10/22 12:42) Ua Culture If Indicated (12/10/22 12:42) Ed Iv/Invasive Line Start (12/10/22 12:42) Cbc With Automated Diff (12/10/22 12:42) Ns Iv 1000 Ml (Sodium Chloride 0.9%) (12/10/22 12:51) Ketorolac Injection (Toradol Injection) (12/10/22 12:51) Ondansetron Injection (Zofran Injectio (12/10/22 12:51) Ct Abdomen/Pelvis W (12/10/22 12:51) Lactic Acid Analyzer (12/10/22 12:51) Manual Differential (12/10/22 12:52) Ekg Tracing (12/10/22 13:26) Iohexol Injection (Omnipaque 350 Mg/Ml 1 (12/10/22 13:45) Received Contrast (Hold Metformin- Contr (12/10/22 13:45) Ns (Ivpb) (Sodium Chloride 0.9% Ivpb Bag (12/10/22 13:45) Medications Given in ED Current Medications Medications Dose Ordered Sig/Ryann Route Start Time Stop Time Status Last Admin Dose Admin Iohexol 100 ml ONCE ONCE IV 12/10/22 13:45 12/10/22 13:46 DC 12/10/22 13:46 80 ML Sodium Chloride 100 ml ONCE ONCE IV 12/10/22 13:45 12/10/22 13:46 DC 12/10/22 13:46 100 ML Vital Signs/I&O 12/10/22 12/10/22 12:41 14:23 Temp 36.5 Pulse 74 68 Resp 16 16 B/P (MAP) 180/107 (131) 136/73 Pulse Ox 95 94 O2 Delivery Room Air Room Air Blood Pressure Mean: 131 Progress Progress Note #1: Progress Note Potential diagnosis of viral gastroenteritis, bowel obstruction, constipation, ischemic bowel, bowel mass, colitis, diverticulitis, UTI, Pyelonephritis, appendicitis, cholecystitis, peptic ulcer disease, gastritis, GERD. Placed on cardiac library monitor and my initial interpretation shows he has a sinus rhythm with a heart rate in the 70s without ST elevation or ischemia or arrhythmia. Obtain electrocardiogram for more detailed evaluation of his heart rate and rhythm. Place peripheral IV access and send labs for complete blood count, comprehensive metabolic profile, lipase, lactic acid, urinalysis. CT scan of the abdomen and pelvis with IV contrast looking for signs of pathology in his abdomen and pelvis to cause his symptoms. Normal saline 1 L IV fluid bolus for hydration as we are keeping the patient n.p.o., Zofran 4 mg IV for nausea and vomiting. Ordered Toradol 15 mg IV x1 for his complaint of a 0-1 abdominal pain worse with palpation. Progress Note #2: Time: 13:13 Progress Note Complete blood count shows mild elevation of his white blood cell count of 14.3 thousand with 66% neutrophils 21% lymphocytes on the automated differential. His hemoglobin was not showing anemia as it was at 15.1. He had normal platelets of 228. Comprehensive metabolic profile, lactic acid, urinalysis all pending. 1316 urinalysis shows specific gravity of 1.020. He had trace protein otherwise negative nitrates, negative leukocyte Estrace, no white blood cells, no liang teria, no blood. 1319 Lactic acid was not elevated at 1.53. This helps to rule out sepsis, ischemic bowel, overwhelming infection. Progress Note #3: Time: 13:33 Progress Note Comprehensive metabolic panel shows normal sodium of 141. He had mild elevation of his BUN and creatinine to 23 and 1.25. His lipase was not elevated at 30. This helps to rule out renal failure as well as pancreatitis. He does not have elevation of his liver enzymes to indicate hepatitis or acute hepatic failure. Pending CT scan Progress Note #4: Time: 14:08 Progress Note On my personal interpretation and review of his CT scan of abdomen/pelvis with IV contrast it appears he has dilated small bowel loops concerning for possible small bowel obstruction. I did not appreciate any free air or signs of active bleeding. Awaiting radiology reading on the scan. Progress Note #5: Time: 14:16 Progress Note I reviewed the radiologist report on the CT scan of the abdomen and pelvis with IV contrast in the felt that he did not have an obstruction or blockage but did have dilated small bowel loops consistent with enteritis. Counseled patient on results and discharged with prescription for Zofran. Counseled on oral intake and management of symptoms. Counseled on follow-up and return precautions. Initial ECG Impression Date: December 10, 2022 Initial ECG Impression Time: 12:48 Initial ECG Rate: 74 Initial ECG Rhythm: Normal Sinus Initial ECG Comparisson: No Previous ECG Available Comment On my interpretation and review of his electrocardiogram he has a sinus rhythm with a heart rate of 74 bpm. He has a first-degree AV block with NH interval 222 ms. He has no acute ST elevation. He has a left anterior fascicular block. QT interval 427 ms with a QTc interval 455 ms. There is no prior tracing available for comparison. Diagnostic Imaging Diagonstic Imaging: CT Plain Films/CT/US/NM/MRI: abdomen, pelvis Comments NAME: ZARI MOYA [facility] REC#: [id number] PT STATUS: REG ER : 1940 PHYSICIAN: SIMONE HENNING MD ADMIT DATE: 12/10/22/ER FS Draft Date of Exam:12/10/22 CT ABDOMEN/PELVIS W PROCEDURE: CT abdomen and pelvis with contrast. TECHNIQUE: Multiple contiguous axial images were obtained through the abdomen and pelvis after administration of intravenous contrast. Auto Exposure Controls were utilized during the CT exam to meet ALARA standards for radiation dose reduction. All CT scans use one or more of the following dose optimizing techniques: automated exposure control, MA and/or KvP adjustment based on patient size and exam type or iterative reconstruction. INDICATION: Diffuse pain accompanied by nausea and vomiting. COMPARISON: No priors. FINDINGS: Small bowel loops diffusely are dilated and mildly distended with fluid. The mucosa is somewhat hyperemic and hyperenhancing. Short segment of small bowel deep to the abdominal wall right of midline at and just below the level of the umbilicus is thickened but no perienteric stranding or edema. No transition zone. The small bowel distention extends through the terminal ileum. Findings suggest an enteritis with no pneumatosis or free gas. Stool-containing colon is unremarkable. No colonic wall thickening. No colitis or diverticulitis. No abscess or perforation. No fistula. There is no appendicitis. There is a ventral supraumbilical fatty abdominal wall hernia as well as small fatty hernias at and lateral to the umbilicus. No viscus hernia. No abdominal wall fluid collection. There is some rectus diastasis. Liver, spleen, adrenals, pancreas, and gallbladder are unremarkable. The unobstructed kidneys appeared nonacute. The atherosclerotic aorta is nonaneurysmal and patent. Stomach is nondistended. IMPRESSION: 1. Dilated and mildly hyperemic and thickened small bowel without transition zone suggesting enteritis. No abscess, obstruction, or perforation. Ventral fatty abdominal wall hernias and rectus diastasis. 2. Large bowel is nonacute and the solid viscus of the abdomen and pelvis appeared unremarkable. Dictated on workstation # [id number] Dict: 12/10/22 1358 Trans: 12/10/22 1412 [id number] Interpreted by: KATIE KIRK Electronically signed by: Reviewed: Reviewed by Me Departure Impression Primary Impression: Diffuse abdominal pain Additional Impressions: Nausea and vomiting in adult patient Enteritis Disposition: 01 HOME, SELF-CARE Condition: Stable Departure-Patient Inst. Decision time for Depature: 14:16 Referrals: SELF,CATIE GAYTAN (PCP/Family) Primary Care Physician Patient Instructions: Nausea and Vomiting, Adult ED, Diarrhea, Adult ED, Abdominal Pain, Adult ED Add. Discharge Instructions: Try following a liquid diet for 24 hours so it will be easier on your gut and let some of the inflammation of the small intestine improve and resolve. Then after 24 hours you could try to advance to bland and soft diet and then if tolerating that you could advance to your regular diet. Use the dissolving nausea tablet, Ondansetron or Zofran, to help with nausea and to keep your stomach settled. You might develop some diarrhea based on what your CT scan looks like today with increased fluid and liquid stool in your small intestine. If having uncontrolled nausea/vomiting despite medicine, worsening pain, or fever over 101 F you could be re-evaluated in clinic or in ER. All discharge instructions reviewed with patient and/or family. Voiced understanding. Scripts Ondansetron (Ondansetron Odt) 4 Mg Tab.rapdis 4 MG PO Q6H PRN for NAUSEA/VOMITING for 2 Days, #8 TAB 0 Refills Prov: SIMONE HENNING MD 12/10/22 SIMONE HENNING MD December 10, 2022 13:02
[2022-12-10 13:11] LABS: HEMATOCRIT 46 % (40-54); HEMOGLOBIN 15.1 g/dL (13.3-17.7); MEAN CORPUSCULAR HEMOGLOBIN 30 pg (25-34); MEAN CORPUSCULAR HGB CONC 33 g/dL (32-36); MEAN CORPUSCULAR VOLUME 92 fL (80-99); PLATELET COUNT 228 10^3/uL (130-400); WHITE BLOOD COUNT 14.3 10^3/uL (4.3-11.0)
[2022-12-10 13:12] LABS: BASOPHILS % (AUTO) 0 % (0-10); EOSINOPHILS % (AUTO) 5 % (0-10); LYMPHOCYTES % (AUTO) 21 % (12-44); MEAN PLATELET VOLUME 10.1 fL (9.0-12.2); MONOCYTES % (AUTO) 7 % (0-12)
[2022-12-10 13:13] LABS: BASOPHILS # (AUTO) 0.1 10^3/uL (0.0-0.1); EOSINOPHILS # (AUTO) 0.7 10^3/uL (0.0-0.3); MONOCYTES # (AUTO) 1.1 X 10^3 (0.0-1.0); NEUTROPHILS # (AUTO) 9.5 X 10^3 (1.8-7.8); NEUTROPHILS % (AUTO) 66 % (42-75)
[2022-12-10 13:14] LABS: BACTERIA,URINE NEGATIVE /HPF; BILIRUBIN,URINE NEGATIVE (NEGATIVE); CLARITY,URINE CLEAR; COLOR,URINE YELLOW; GLUCOSE, URINE (UA) NEGATIVE (NEGATIVE); KETONES,URINE NEGATIVE (NEGATIVE); LEUKOCYTE ESTERASE ,URINE NEGATIVE (NEGATIVE); NITRITE,URINE NEGATIVE (NEGATIVE); PH,URINE 7.5 (5-9); PROTEIN,URINE TRACE (NEGATIVE); SQUAMOUS EPITHELIAL CELL,UR RARE /HPF; WBC,URINE 0-2 /HPF
[2022-12-10 13:24] LABS: CARBON DIOXIDE 25 MMOL/L (21-32); CHLORIDE 104 MMOL/L (98-107); POTASSIUM 4.6 MMOL/L (3.6-5.0); SODIUM 141 MMOL/L (135-145)
[2022-12-10 13:25] LABS: ALANINE AMINOTRANSFERASE 38 U/L (0-55); ALKALINE PHOSPHATASE 90 U/L (40-136); BILIRUBIN,TOTAL 0.9 MG/DL (0.1-1.0); BUN/CREATININE RATIO 18; CALCIUM 10.1 MG/DL (8.5-10.1); CREATININE SERUM 1.25 MG/DL (0.60-1.30); GFR ESTIMATED 57; GLUCOSE 117 MG/DL (70-105); TOTAL PROTEIN 8.1 GM/DL (6.4-8.2)
[2022-12-10 13:26] LABS: ALBUMIN 4.6 GM/DL (3.2-4.5); LIPASE 30 U/L (8-78)
[2022-12-10 13:33] LABS: BAND NEUTROPHILS 2 %; BASOPHILS % (MANUAL) 0 %; EOSINOPHILS % (MANUAL) 2 %; LYMPHOCYTES % (MANUAL) 16 %; MONOCYTES % (MANUAL) 8 %; NEUTROPHILS % (MANUAL) 72 %
[2022-12-10] MEDS ORDERED: IOHEXOL 350 MG/ML 100 ML (OMNIPAQUE 350) VIAL IV ONE (13:45)
[2022-12-10] MEDS ORDERED: NS 100 ML (IVPB) BAG IV ONE (13:45)
[2022-12-10] MEDS ORDERED: HOLD METFORMIN - RECEIVED CONTRAST 20 ML VIAL IV SCH (13:45)
--- NOTE | 2022-12-10 14:12 | Diagnostic Imaging Report ---
PROCEDURE: CT abdomen and pelvis with contrast. TECHNIQUE: Multiple contiguous axial images were obtained through the abdomen and pelvis after administration of intravenous contrast. Auto Exposure Controls were utilized during the CT exam to meet ALARA standards for radiation dose reduction. All CT scans use one or more of the following dose optimizing techniques: automated exposure control, MA and/or KvP adjustment based on patient size and exam type or iterative reconstruction. INDICATION: Diffuse pain accompanied by nausea and vomiting. COMPARISON: No priors. FINDINGS: Small bowel loops diffusely are dilated and mildly distended with fluid. The mucosa is somewhat hyperemic and hyperenhancing. Short segment of small bowel deep to the abdominal wall right of midline at and just below the level of the umbilicus is thickened but no perienteric stranding or edema. No transition zone. The small bowel distention extends through the terminal ileum. Findings suggest an enteritis with no pneumatosis or free gas. Stool-containing colon is unremarkable. No colonic wall thickening. No colitis or diverticulitis. No abscess or perforation. No fistula. There is no appendicitis. There is a ventral supraumbilical fatty abdominal wall hernia as well as small fatty hernias at and lateral to the umbilicus. No viscus hernia. No abdominal wall fluid collection. There is some rectus diastasis. Liver, spleen, adrenals, pancreas, and gallbladder are unremarkable. The unobstructed kidneys appeared nonacute. The atherosclerotic aorta is nonaneurysmal and patent. Stomach is nondistended. IMPRESSION: 1. Dilated and mildly hyperemic and thickened small bowel without transition zone suggesting enteritis. No abscess, obstruction, or perforation. Ventral fatty abdominal wall hernias and rectus diastasis. 2. Large bowel is nonacute and the solid viscus of the abdomen and pelvis appeared unremarkable. Dictated by: Dictated on workstation # [id number]
[2022-12-10] MEDS ORDERED: ONDA4TAB11 PO (14:22)
[2022-12-10 14:23] VITALS: BP 136/73
== END 2022-12-10 14:27 | disposition home or self-care (01) ==
LOC: EDUNIT# 12:37 → ER FS 12:39
DX: K52.9 Noninfective gastroenteritis and colitis, unspecified (principal); R94.4 Abnormal results of kidney function studies; R79.89 Other specified abnormal findings of blood chemistry
CPT/HCPCS: 36415; 74177; 80053; 81000; 83605; 83690; 85007; 85027; 93005; Q9967